=== PATIENT | male | born 1980 | race Caucasian/White ===

== ENCOUNTER 2024-08-25 17:55 | Emergency (ER) | payer SELFPAY ==
[2024-08-25 18:00] VITALS: BP 132/96; PULSE 83; RESP 16; TEMP 36.7; O2SAT 98
--- NOTE | 2024-08-25 18:11 | ED.GENADUL_ITS ---
Discharge Plan Disposition Patient Disposition: Home Condition: Stable Discharge Details Clinical Impression: Viral syndrome Primary Care Provider: Unknown,Unknown ED Provider: Harry Welch Home Meds and New Rx's Prescriptions: No Action No Known Home Meds Discharge Instructions Instructions: Cough, runny nose, and the common cold Additional Instructions: You were seen in the emergency department for your cold symptoms. There is no evidence of strep, your rapid strep is negative, your COVID and flu swab is negative. You are in no respiratory distress, I think your low temperature reading at home was an error. Please take regular dose of Tylenol and ibuprofen and cold medicines as needed, please return to the emergency department for any severe respiratory distress, inability to tolerate oral intake, chest pain or other emergent concern. Discharge Data Discharge Date/Time-TO BE ENTERED AT DEPARTURE: 08/25/24 19:17 HPI General Date/Time Provider Initiated Documentation: 08/25/24 18:08 . HPI Narrative: 44 year-old male presents to ED today by POV/ambulating with a chief complaint of sore throat, congestion, concern he caught bronchitis from his dog, with onset of sypmtoms the past few days. Quality described as generalized malaise, no radiation to shortness of breath, nausea/vomiting, high fever- reports he took his temp and it was low- but he does not feel cold. Severity is described as mild to moderate. Palliating factors include nothing specific. Provoking factors include nothing specific. Patient not anticoagulated. Related Data Home Medications ?Medication ?Instructions ?Recorded ?Confirmed Unknown [No Known Home Meds] 08/25/24 08/25/24 Allergies Allergy/AdvReac Type Severity Reaction Status Date / Time No Known Allergies Allergy Unverified 08/25/24 18:03 General Stated Complaint: RespSymp ASH: 4 Review of Systems All systems reviewed & are unremarkable except as noted in HPI and below Exam Narrative Exam Narrative: GENERAL APPEARANCE: Well-nourished, non-toxic, awake and alert, atraumatic, no acute distress. SKIN: Warm, pink, dry, intact, without rashes/lesions/ulcerations. HEAD: Normocephalic, atraumatic, normal hair distribution for gender/age. EYES: Normal conjunctiva, no exudates on lids/lashes. ENT: Nares patent, no circumoral cyanosis, no facial swelling, benign posterior oropharynx NECK: Supple, trachea midline, painless cervical ROM. LUNGS/CHEST: Lungs CTA bilaterally- no rhonchi/rales/wheezes diffusely, non- labored respirations, normal A/P diameter, symmetrical expansion, no chest wall deformity HEART (CV/PV): Regular rate and rhythm without murmur, no peripheral edema, no JVD. ABDOMEN: Soft, non-distended, no guarding. MSK: Normal ROM, no swelling/deformity to bilateral UEs or LEs, moving all extremities without weakness, no cyanosis, spine midline without tenderness, normal curvature. NEURO: Mental Status AAOx4 - alert to person, place, time, events No facial droop, no forehead involvement. Motor: No focal weakness - strength 5/5 in bilateral UEs and LEs, proximal and distal, symmetric. Sensory: sensation intact to light touch globally. Gait normal: patient ambulated without ataxia into ED room. PSYCH: euthymic, cooperative, pleasant, appropriate speech Course Vital Signs Vital signs: Vital Signs Temperature 36.7 C 08/25/24 18:00 Pulse 83 08/25/24 18:00 Respiratory Rate 16 08/25/24 18:00 Blood Pressure 132/96 H 08/25/24 18:00 Pulse Oximetry 98 08/25/24 18:00 Temperature 36.7 C 08/25/24 18:00 Pulse 83 08/25/24 18:00 Respiratory Rate 16 08/25/24 18:00 Blood Pressure 132/96 H 08/25/24 18:00 Pulse Oximetry 98 08/25/24 18:00 Pain Level 0 08/25/24 18:00 Medical Decision Making This dictation utilizes [id number] dictation software and may contain unedited grammatical errors. 44 year-old male presents to ED today by POV/ambulating with a chief complaint of sore throat, congestion, concern he caught bronchitis from his dog, with onset of sypmtoms the past few days. Quality described as generalized malaise, no radiation to shortness of breath, nausea/vomiting, high fever- reports he took his temp and it was low- but he does not feel cold. Severity is described as mild to moderate. Palliating factors include nothing specific. Provoking factors include nothing specific. Patients' medical history: [ ]. Family and social history: [ ]. Pertinent exam findings / vital signs include lungs CTA, stable vitals, no respiratory distress, benign posterior oropharynx. Differential / pathologies of concern include viral syndrome, upper respiratory infection, pharyngitis. Diagnostic studies of: -POC COVID/flu, POC rapid strep, patient refused chest x-ray. -POC swabs all negative Interventions of: -None, recommend OTC cold medicines. ED Course/Assessment/Plan: 44-year-old male presents with likely viral respiratory infection for the past couple to few days. I counseled him on self-care at home, negative for COVID and flu, patient refused chest x-ray, no evidence of strep throat on POC swab. Strict return to ER for any respiratory distress or worsening despite OTC treatment Findings not consistent with pneumonia, respiratory distress, trismus, deep space infection. Disposition of viral syndrome. Patient verbalized understanding of the plan and return to ED criteria and engaged in shared decision making. Medical Records Medical records reviewed: Yes I reviewed the patient's medical records. Lab Data Lab results reviewed: Yes I reviewed the patient's lab results. Lab results narrative: POC strep/flu/covid negative Quality:SDOH Health Related Social Needs: Health related social needs problems with daily activi ties (Z73.9) [facility] All Active Problems (Updated 08/25/24 @ 19:14 by HENRY Agustin) Viral syndrome (Acute) Social History Smoking/Tobacco Use Status: Never Smoking risk assessment performed?: Yes Alcohol Intake: current Alcohol Intake frequency: a few times a month Drug use: Never Substance use type: does not use Do you feel safe at home: Yes Do you feel safe in your relationship?: Yes
== END 2024-08-25 19:17 | disposition home or self-care (01) ==
PROVIDERS: Emergency Provider Physician Assistant
DX: R07.0 Pain in throat (principal); B34.9 Viral infection, unspecified; Z73.9 Problem related to life management difficulty, unspecified
CPT/HCPCS: 99282; 99283

== ENCOUNTER 2024-12-11 02:27 | Emergency (ER) | payer SELFPAY ==
[2024-12-11 02:35] VITALS: BP 164/106; PULSE 84; RESP 15; TEMP 36.8; O2SAT 98
[2024-12-11 02:38] VITALS: BP 164/106; PULSE 84; RESP 15; TEMP 36.8; O2SAT 98
[2024-12-11] MEDS: Benzocaine 20% 60 ML CAN (02:39)
--- NOTE | 2024-12-11 02:47 | W.ED.GENAD ---
Discharge Plan Disposition Patient Disposition: Home Condition: Good Discharge Details Clinical Impression: Tracheal foreign body Primary Care Provider: Unknown,Unknown ED Provider: Harry Jones Home Meds and New Rx's Prescriptions: No Action No Known Home Meds Discharge Instructions Additional Instructions: At this time there is no evidence of large leaf or obstruction in your trachea. Please take 1 to 2 tablespoons of raw honey every 1-2 hours for the next day to help coat your posterior oropharynx. If you notice any worsening of your symptoms, or any new symptoms such as vomiting, diarrhea, fever, chills, shortness of breath, chest pain, numbness, weakness, or fainting , please return immediately to the emergency department for reevaluation. Please follow up with your primary care provider as soon as possible for reassessment and reevaluation. As always, it was a pleasure participating in your medical care today. HPI General Date/Time Provider Initiated Documentation: 12/11/24 02:46. HPI Narrative: This is a 44-year-old male who denies any significant past medical history who presents today for evaluation of something stuck in his throat. Patient states that he was smoking a joint of weed earlier this evening when he subsequently felt like a small leaf or particulate component got stuck at the back of his mouth/throat. He states that he has tried to cough it out but it feels like it still stuck. He denies any difficulty drinking or swallowing. He denies any difficulty breathing but just states that it is the sensation that is quite annoying. He denies any other complaints at this time. No other modifying factors. He denies any hemoptysis. No cough or fever or chills. Related Data Home Medications ?Medication ?Instructions ?Recorded ?Confirmed Unknown [No Known Home Meds] 08/25/24 12/11/24 Allergies Allergy/AdvReac Type Severity Reaction Status Date / Time No Known Allergies Allergy Unverified 12/11/24 02:39 General Stated Complaint: RespSymp ASH: 4 Exam Narrative Exam Narrative: 1.Const: Well-nourished, Well-developed, appearing stated age 2.Eyes: PERRL, no conjunctival injection, and symmetrical lids. 3.ENT: Atraumatic external nose and ears. Moist MM. Neck: Symmetric, trachea midline, No thyromegaly. Posterior oropharynx shows no evidence of retained foreign bodies, no wheezes or stridor. 4.CVS: +S1/S2, Peripheral pulses 2+ and equal in all extremities. Brisk capillary refill in all extremities. 5.RESP: Unlabored respiratory effort. Clear to auscultation bilaterally. No wheezes rales or rhonchi 6.GI: Soft, Nontender/Nondistended, No hepatosplenomegaly. No guarding or rebound. 7.MSK: Normocephalic/Atraumatic, Extremities w/o deformity or ttp No cyanosis or clubbing, Normal movement of all extremities 8.Skin: Warm, Dry. No rashes or lesions. 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 Sensation grossly intact, no focal neurologic deficits. 10.Psych: (AAO) x3. Appropriate mood and affect Course Vital Signs Vital signs: Vital Signs Temperature 36.8 C 12/11/24 02:35 Pulse 84 12/11/24 02:35 Respiratory Rate 15 12/11/24 02:35 Blood Pressure 164/106 H 12/11/24 02:35 Pulse Oximetry 98 12/11/24 02:35 Temperature 36.8 C 12/11/24 02:38 Pulse 84 12/11/24 02:38 Respiratory Rate 15 12/11/24 02:38 Blood Pressure 164/106 H 12/11/24 02:38 Blood Pressure Position Sitting 12/11/24 02:38 Pulse Oximetry 98 12/11/24 02:38 Oxygen Delivery Method Room Air 12/11/24 02:38 Oxygen Flow Rate 0 12/11/24 02:38 Procedure Laryngoscopy Date of Procedure: 12/11/24 Time of procedure: 03:00 Provider that performed the procedure: Harry Jones Indication: Other (Evaluation of the larynx and posterior oropharynx and the epiglottis for foreign body) Standard Time Out Performed: Yes Patient Consented: Verbally Local Anesthetic: Other Anesthetic (Benzocaine HurriCaine spray) Amount of anesthesia used (mL): 1 Technique: video laryngoscope Findings: normal larynx, normal epiglottis, no soft tissue swelling, normal vocal cords and no foreign body Complications: none Post-procedure exam: awake, alert Medical Decision Making This is a 44-year-old male who denies any significant past medical history who presents today for evaluation of something stuck in his throat. Patient states that he was smoking a joint of weed earlier this evening when he subsequently felt like a small leaf or particulate component got stuck at the back of his mouth/throat. He states that he has tried to cough it out but it feels like it still stuck. He denies any difficulty drinking or swallowing. He denies any difficulty breathing but just states that it is the sensation that is quite annoying. He denies any other complaints at this time. No other modifying factors. He denies any hemoptysis. No cough or fever or chills. Patient was concerned for potential foreign body in the posterior oropharynx. No wheeze was noted, no abnormality on auscultation. No stridor. Visualization of the posterior oropharynx shows no redness edema or abnormality. Patient's posterior oropharynx was anesthetized with her spray. Using the glide scope, I was then able to go into visualize the epiglottis, and the vocal cords. Patient tolerated this well. No evidence of foreign body, obstruction, or other abnormality. Patient denies any sensation in the chest or lower throat. No indication for further radiographic imaging of the chest. With no evidence of visual foreign body, or abnormality in the posterior oropharynx, epiglottis, or vocal cords I do not see any further necessitated interventions at this time as patient is clinically stable. Will recommend oral honey to help coat the posterior oropharynx. Discussed red flags for which to return. I have extensively reviewed the treatment plan and discharge instructions with the patient. I have addressed all patient concerns at this time. The patient was made aware of what symptoms to monitor for that would warrant a return to the emergency department. Discussed the plan with the patient, they demonstrate verbal understanding and agreement with our assessment and plan at this time. The documentation in this chart was dictated using [employer] dictation software. Please excuse any dictation errors. Quality:SDOH Health Related Social Needs: Health related social needs problems with daily activities (Z73.9) PFSH All Active Problems (Updated 12/11/24 @ 02:48 by Harry Jones DO) Tracheal foreign body (Acute) Social History Smoking/Tobacco Use Status: Never Smoking risk assessment performed?: Yes Alcohol Intake: current Alcohol Intake frequency: a few times a month Drug use: Never Substance use type: does not use Do you feel safe at home: Yes Do you feel safe in your relationship?: Yes PAWSS Have you Been Recently Intoxicated or Drunk Within the Last 30 days?: No Have you Ever Experienced Previous Episodes of Alcohol Withdrawal?: No Have you ever Experienced Withdrawal Seizures?: No Have you ever Experienced Delirium Tremens(DT)s?: No Have you ever undergone Alcohol Rehabilitation Treatment (i.e, inpt ot outpatient treatment programs)?: No Have you ever Experienced Blackouts?: No Have you ever Combined Alcohol with other Downers within the last 90 days?: No Have you ever Combined Alcohol with any other Substance of Abuse during the last 90 days?: No Positive Blood Alcohol level on Presentation? [PCS.BAL]: No Evidence of Increased Autonomic Activity (i.e. HR>120, tremor, sweating, agitation, nausea)?: No Result: 0
[2024-12-11 02:51] VITALS: BP 164/106; PULSE 84; RESP 15; TEMP 36.8; O2SAT 98
== END 2024-12-11 02:52 | disposition home or self-care (01) ==
PROVIDERS: Emergency Provider Student in an Organized Health Care Education/Training Program
DX: T17.408A Unspecified foreign body in trachea causing other injury, initial encounter (principal); Z73.9 Problem related to life management difficulty, unspecified; R05.1 Acute cough
CPT/HCPCS: 31575

== ENCOUNTER 2024-12-31 00:18 | Outpatient (CLI) | payer OTHER, SELFPAY ==
--- NOTE | 2024-12-31 11:30 | DI.MRI_ITS ---
Exam(s) MR UPPER JOINT LT WO EXAM: MR UPPER JOINT LT WO CLINICAL HISTORY: LT HAND SPRAIN,842.10,[id number],LT WRIST SPRAIN,842.00,[id number]. TECHNIQUE: Multiplanar multisequence MRI was performed. COMPARISON: None. FINDINGS: BONES: There is no fracture nor bone contusion. No evidence of avascular necrosis. JOINTS: The radiocarpal joint is unremarkable. The carpal joints are unremarkable. Scapholunate distance is normal.No evidence of para-articular ganglion cysts. There is mild increased fluid signal in the medial aspect of the wrist medial to the triquetrum. TENDONS: Flexors: Unremarkable. No tears nor tenosynovitis. Carpal tunnel: No tendon tears nor tenosynovitis. No obvious abnormality in the median nerve. Extensors: On the lateral aspect of the wrist in the 1st extensor compartment there is some signal abnormality within and fluid around the extensor pollicis brevis tendon. Milder signal abnormality in the subjacent abductor pollicis longus tendon. No high-grade tear of these dense evident. No abnormal findings in the 2nd compartment extensor tendons (extensor or carpi radialis longus and brevis nor in the other extensor or compartments. MUSCLES: No abnormal muscular signal LIGAMENTS: Scapholunate and lunotriquetral ligaments appear intact. TRIANGULAR FIBROCARTILAGE: Mild degenerative change. No true tear. OTHER: IMPRESSION: There is some tendinitis signal and mild tenosynovitis of the extensor pollicis brevis tendon in the 1st extensor compartment on the radial side of the wrist. Consistent with element of de Quervain tenosynovitis. There is more minimal involvement of the adjacent abductor pollicis longus tendon. DATA REPOSITORY:
== END 2024-12-31 00:38 ==
PROVIDERS: Visit Provider Physician Assistant Medical
DX: M65.4 Radial styloid tenosynovitis [de Quervain] (principal)
CPT/HCPCS: 73221